=== PATIENT | male | born 1975 | race Caucasian/White ===

== ENCOUNTER 2018-04-02 00:31 | Outpatient (CLI) | payer BC, SELFPAY ==
--- NOTE | 2018-04-02 14:27 | DI.MRI_ITS ---
SYMPTOM/DIAGNOSIS: ACUTE ON CHRONIC LOW BACK P AIN M54.5, G89.29 - OTHER CHRONIC PAIN MRI LUMBAR SPINE: Comparison is made with 09 Oct 2015. T1, T2 and STIR sagittal, and T1, T2 Axial sequences were performed. The T-11, 12 through L1-2 discs appear intact. At L2-3 there is no partial disc desiccation and mild posterior disc bulging. There is no significant central canal stenosis or neuroforaminal narrowing At L3-4, there is mild disc bulging. At L4-5, there is mild disc bulging centrally. There is no significant neural foraminal narrowing of central canal stenosis. The findings appear stable. At L5-S1, there is a stable small central disc protrusion. There is no neuroforaminal narrowing or central canal stenosis. The conus medullaris appears intact. The marrow signal is normal. IMPRESSION: Degenerative disc changes with new degenerative bulging at L2-3.
--- NOTE | 2018-04-02 16:47 | DI.VRAD_ITS ---
EXAM: MR Lumbar Spine Without Intravenous Contrast. EXAM DATE/TIME: 04/02/2018 2:26 PM CLINICAL HISTORY: 42 years old, male; Pain; Low back pain; Patient HX: Acute or chronic low back pain. TECHNIQUE: Multiplanar magnetic resonance images of the lumbar spine without intravenous contrast. COMPARISON: MRI - LUMBAR SPINE WO CONTRAST 10/09/2015 3:07 PM FINDINGS: Vertebrae: Unremarkable. Spinal cord: Normal signal. No cord compression. DISCS/SPINAL CANAL/NEURAL FORAMINA: T12-L1: No stenosis. L1-L2: No stenosis L2-L3: Degenerative disc and spondylitic changes. Broad-based 2 mm right paracentral disc extrusion. No central canal stenosis. No foraminal stenosis. L3-L4: Degenerative disc and spondylitic changes.Disc bulging and central annular tear without focal herniation. No central canal or foraminal stenosis. L4-L5: Degenerative disc and spondylitic changes. Annular tear and broad-based 2 mm central disc protrusion. No central canal stenosis. No foraminal stenosis. L5-S1: Degenerative disc and spondylitic changes. 3 mm central disc protrusion. No central canal stenosis. No significant foraminal narrowing. Soft tissues: Unremarkable. IMPRESSION: Degenerative changes as described. Dictated and Authenticated by: Genaro Chen MD. Ordering:JORGE L LEOS MD
== END 2018-04-02 00:51 ==
PROVIDERS: PCP Family Medicine; Visit Provider Nurse Practitioner Family
DX: M51.37 Other intervertebral disc degeneration, lumbosacral region (principal); M54.5 Low back pain; G89.29 Other chronic pain
CPT/HCPCS: 72148

== ENCOUNTER 2018-09-15 14:28 | Outpatient (CLI) | payer BC, SELFPAY ==
[2018-09-15 14:47] LABS: Abs Immature Grans 0.01 k/cumm (0.0-0.09); Absolute Basophil Count 0.01 k/cumm (0.0-0.2); Absolute Eosinophil Count 0.06 k/cumm (0.0-0.7); Absolute Lymphocyte Count 1.72 k/cumm (1.2-3.4); Absolute Monocyte Count 0.73 k/cumm (0.11-0.7); Absolute Neutrophil Count 2.84 k/cumm (1.2-6.7); Basophils % 0.2; Eosinophils % 1.1; HCT 42.6 % (40.0-50.0); Immature Grans % 0.2; Mean Corp. HGB Concentration 32.9 g/dL (32.0-36.0); Mean Corpuscular Hemoglobin 29.7 pg (27.0-33.0); Mean Corpuscular Volume 90.4 fL (80-95); Mean Platelet Volume 9.3 fL (8.0-11.0); Monocytes % 13.6; Neutrophils % 52.9; Platelet Count 231 x1000/uL (130-400); RBC 4.71 m/cumm (4.50-6.00); RBC Distribution Width 13.2 % (11.8-14.1); White Blood Cell Count 5.37 k/cumm (4.4-10.8)
[2018-09-15 15:48] LABS: ALT 33 U/L (12-78); AST 21 U/L (15-37); Albumin 3.9 g/dL (3.4-5.0); Alkaline Phosphatase 56 U/L (46-116); Anion Gap 4.9 mmol/L (3-11); BUN 17 mg/dL (7-18); Bilirubin, Total 0.8 mg/dL (0.2-1.0); CO2 32.1 mmol/L (21.0-32.0); Calcium 9.1 mg/dL (8.5-10.1); Chloride 102 mmol/L (98-107); Cholesterol 272 mg/dL (50-200); Glucose 100 mg/dL (70-100); HDL Cholesterol 47 mg/dL (40-60); LDL CHOLESTEROL 169 mg/dL (<100); Potassium 4.5 mmol/L (3.5-5.1); Sodium 139 mmol/L (136-145); TSH (W/Ref FT4) 0.97 uIU/mL (0.358-3.74); Total Protein 7.1 g/dL (6.4-8.2); Triglyceride 347 mg/dL (30-150)
== END 2018-09-15 14:48 ==
PROVIDERS: PCP Family Medicine; Visit Provider Family Medicine
DX: R53.81 Other malaise (principal)
CPT/HCPCS: 36415; 80053; 80061; 83721; 84443; 85025

== ENCOUNTER 2018-11-04 07:00 | Outpatient (CLI) | payer BC, SELFPAY ==
--- NOTE | 2018-11-04 07:30 | MERGE_ITS ---
*[facility]* *[facility]* [address] [place] [address] Date of study: 11/04/2018 Transthoracic Echocardiography M-mode, complete 2D, complete spectral Doppler, and color Doppler *STUDY CONCLUSIONS* Impressions: Normal LV. Summary: 1. Left ventricle: The cavity size was normal. Wall thickness was at the upper limits of normal. Systolic function was normal. The estimated ejection fraction was 60-65%. Wall motion was normal; there were no regional wall motion abnormalities. 2. Mitral valve: There was mild regurgitation. 3. Right ventricle: The cavity size was normal. Wall thickness was normal. Systolic function was normal. 4. Pulmonary arteries: Pulmonary systolic pressure was at the upper limits of normal. PA peak pressure: 32mm Hg (S). *PATIENT PRESENTATION* Height: 182.9cm (72in ) S/D Pressure: 102 / 61 Weight: 83.9kg (184.6lb ) BSA: 2.07m^2 Test start time: 07:35 AM. Test stop time: 08:40 AM. REFERRING Denise Sellers PERFORMING Unknown PERFORMING [facility] PER ASSESSMENT NURSE [address] (R)(CT), RDPATRICK CONSULTING Balbir Mcnally ORDERING Balbir Mcnally REFERRING Balbir Mcnally *PROCEDURE DATA* Procedure information: This study was interpreted by [facility]. Pertinent images and digital data are archived for permanent storage and are available for subsequent review. No prior study was available for comparison. Study status: Routine. Transthoracic echocardiography. M-mode, complete 2D, complete spectral Doppler, and color Doppler. A Transthoracic Echocardiogram was performed. Scanning was performed from the parasternal, apical, subcostal, and suprasternal notch acoustic windows. Images were obtained using an [id number] cardiac ultrasound machine. Study completion: The patient tolerated the procedure well. *CARDIAC ANATOMY* Left ventricle: The cavity size was normal. Wall thickness was at the upper limits of normal. Systolic function was normal. The estimated ejection fraction was 60-65%. Wall motion was normal; there were no regional wall motion abnormalities. Aortic valve: Trileaflet; normal thickness leaflets. Mobility was not restricted. Doppler: Transvalvular velocity was within the normal range. There was no stenosis. There was no significant regurgitation. VTI ratio of LVOT to aortic valve: 0.87. Valve area (VTI): 2.6cm^2. Indexed valve area (VTI): 1.3cm^2/m^2. Peak velocity ratio of LVOT to aortic valve: 0.91. Valve area (Vmax): 2.7cm^2. Indexed valve area (Vmax): 1.3cm^2/m^2. Mean velocity ratio of LVOT to aortic valve: 0.85. Valve area (Vmean): 2.5cm^2. Indexed valve area (Vmean): 1.2cm^2/m^2. Mean gradient (S): 5mm Hg. Peak gradient (S): 8.4mm Hg. Aorta: Aortic root: The aortic root was normal in size. Ascending aorta: The ascending aorta was normal in size. Mitral valve: Mildly thickened leaflets. Mobility was not restricted. Doppler: Transvalvular velocity was within the normal range. There was no evidence for stenosis. There was mild regurgitation. Valve area by pressure half-time: 3.9cm^2. Indexed valve area by pressure half-time: 1.9cm^2/m^2. Peak gradient (D): 4mm Hg. Left atrium: The atrium was normal in size. Right ventricle: The cavity size was normal. Wall thickness was normal. Systolic function was normal. Pulmonic valve: Poorly visualized. Doppler: Transvalvular velocity was within the normal range. There was no evidence for stenosis. There was mild regurgitation. Peak gradient (S): 0.9mm Hg. Tricuspid valve: Structurally normal valve. Doppler: Transvalvular velocity was within the normal range. There was no evidence for stenosis. There was mild regurgitation. Pulmonary artery: Poorly visualized. Pulmonary systolic pressure was at the upper limits of normal. Right atrium: The atrium was normal in size. Pericardium: There was no pericardial effusion. Systemic veins: Inferior vena cava: Well visualized. The vessel was patent and normal in size. The respirophasic diameter changes were in the normal range (greater than or equal to 50%), consistent with normal central venous pressure. Baseline ECG: Bradycardia. Measurements Left ventricle Value Reference LV ID, ED, PLAX 4.9 cm 3.5 - 6.0 LV ID, ES, PLAX 3.5 cm 2.1 - 4.0 LV PW thickness, ED, PLAX 1.1 cm LV end-diastolic volume, 1-p A2C 101 ml LV ejection fraction, 1-p A2C 65 % LV end-diastolic volume, 1-p A4C 90 ml LV ejection fraction, 1-p A4C 62 % LV e', lateral 0.149 m/sec LV E/e', lateral 7 LV e', medial 0.136 m/sec LV E/e', medial 7 LV e', average 0.142 m/sec LV E/e', average 7 Ventricular septum Value Reference IVS thickness, ED, PLAX 1.1 cm LVOT Value Reference LVOT ID, A-P 2.0 cm LVOT area 3 cm^2 LVOT peak velocity, S 1.32 m/sec LVOT mean velocity, S 0.91 m/sec LVOT VTI, S 28.6 cm LVOT peak gradient, S 7 mm Hg LVOT mean gradient, S 3.7 mm Hg Stroke volume (SV), LVOT DP 86 ml Stroke index (SV/bsa), LVOT DP 41 ml/m^2 Aortic valve Value Reference Aortic valve peak velocity, S 1.5 m/sec Aortic valve mean velocity, S 1.1 m/sec Aortic valve VTI, S 33.0 cm Aortic mean gradient, S 5 mm Hg Aortic peak gradient, S 8.4 mm Hg VTI ratio, LVOT/AV 0.87 Aortic valve area, VTI 2.6 cm^2 Velocity ratio, peak, LVOT/AV 0.91 Aortic valve area, peak velocity 2.7 cm^2 Velocity ratio, mean, LVOT/AV 0.85 Aortic valve area, mean velocity 2.5 cm^2 Aortic valve area/bsa, mean velocity 1.2 cm^2/m^2 Aorta Value Reference Aortic root ID, ED 3.0 cm Ascending aorta ID, A-P, S 2.9 cm RVOT Value Reference RVOT VTI, S 23.8 cm Left atrium Value Reference LA ID, A-P, ES 3.1 cm LA ID/bsa, A-P 1.5 cm/m^2 <=2.2 LA volume/bsa, ES, 1-p A4C 20 ml/m^2 LA volume, ES, 2-p 36 ml LA volume/bsa, ES, 2-p 18 ml/m^2 LA/aortic root ratio 1.06 Mitral valve Value Reference Mitral E-wave peak velocity 1 m/sec Mitral A-wave peak velocity 0.49 m/sec Mitral deceleration time 192 ms 150 - 230 Mitral pressure half-time 56 ms Mitral peak gradient, D 4 mm Hg Mitral E/A ratio, peak 2.03 Mitral valve area, PHT, DP 3.9 cm^2 Pulmonary veins Value Reference Pulmonary vein peak velocity, S 0.54 m/sec Pulmonary vein peak velocity, D 0.73 m/sec Pulmonary vein velocity ratio, peak, 0.74 S/D Pulmonary vein A-wave reversal peak 0.34 m/sec velocity Pulmonary arteries Value Reference PA pressure, S, DP (H) 32 mm Hg <=30 Tricuspid valve Value Reference Tricuspid regurg peak velocity 2.4 m/sec Tricuspid peak RV-RA gradient 23.2 mm Hg Right atrium Value Reference RA area, ES, A4C 14.4 cm^2 8.3 - 19.5 Systemic veins Value Reference Estimated CVP 10 mm Hg Right ventricle Value Reference RV pressure, S, DP (H) 33 mm Hg <=30 Pulmonic valve Value Reference Pulmonic peak gradient, S 0.9 mm Hg Pulmonic regurg velocity, ED 0.48 m/sec Legend: (L) and (H) jovani values outside specified reference range. I have personally reviewed the images and have reviewed and edited the reported findings. Electronically signed by Denise Sellers 11/04/2018 18:03
--- NOTE | 2018-11-04 10:30 | ETT_ITS ---
*[facility]* *[facility]* [address] [place] [address] Stress Electrocardiography Dony protocol Date of study: 11/04/2018 *PATIENT PRESENTATION* Height: 182.9cm (72in) Blood Pressure: Weight: 84.1kg (185lb) BSA: 2.07m^2 Referring physician: Balbir Mcnally Ordering physician: Balbir Mcnally Impressions: Abnormal study , ST depressions without angina. Summary: 1. Stress ECG conclusions: The stress ECG is positive. Stress ECG change: downsloping depression. Severity: 2.0-3.0mm. In lead groups: II, III, aVF and V6. 2. Stress: The target heart rate was achieved. There is a normal resting blood pressure with an appropriate response to stress. The patient experienced no chest pain during stress. Exercise capacity is average for age. Recommendations: Consider Stress Echo. Indication: I49.3. History: Risk factors: FATHER AT AGE 66 YEARS FROM AN OR. FORMER SMOKER A PACK AND A HALF A WEEK. QUIT 9 YEARS AGO. Family history of coronary artery disease. Dyslipidemia. Cholesterol: 272mg/dl. HDL: 47mg/dl. LDL: 169mg/dl. Triglycerides: 347mg/dl. ALLERGIES: PENICILLIN. VICODIN. SULFA. MEDICATIONS: ATORVASTATIN 20 MG DAILY. METOPROLOL TARTRATE 25 MG DAILY. OMEPRAZOLE 40 MG DAILY. Protocol: Dony protocol. Baseline ECG: SINUS BRADYCARDIA. HR 54 BPM. Stress protocol: + +---+ + !Stage !HR !BP (mmHg) ! + +---+ + !Baseline supine !54 !110/70 (83) ! + +---+ + !Baseline standing !67 !110/78 (89) ! + +---+ + !Stage I; 1.7mph, 10degrees; 3 min !92 !130/80 (97) ! + +---+ + !Stage II; 2.5mph, 12degrees; 3 min !108!142/80 (101)! + +---+ + !Stage III; 3.4mph, 14degrees; 3 min!125!148/86 (107)! + +---+ + !Stage IV; 4.2mph, 16degrees; 3 min !162!170/90 (117)! + +---+ + !Peak stress !164! ! + +---+ + !Immediate post stress !---!180/60 (100)! + +---+ + !Recovery; 1 min !148!180/58 (99) ! + +---+ + !Recovery; 3 min !98 !180/60 (100)! + +---+ + !Recovery; 6 min !94 !160/60 (93) ! + +---+ + !Recovery; 9 min !98 !150/68 (95) ! + +---+ + * Stress results: Maximal heart rate during stress was 164bpm (92% of maximal predicted heart rate). The maximal predicted heart rate was 178bpm. The target heart rate was achieved. There is a normal resting blood pressure with an appropriate response to stress. The rate-pressure product for the peak heart rate and blood pressure was 63187ni Hg/min. The patient experienced no chest pain during stress. Exercise capacity is average for age. Stress ECG: TREADMILL PORTION OF STRESS TEST ENDED IN 12 MINUTES AND 1 SECOND DUE TO FATIGUE. NORMAL HEART RATE AND BLOOD PRESSURE RESPONSE TO EXERCISE. BP & HR SLOW TO RETURN TO BASELINE DURING RECOVERY. MAX HR = 164 % OF TARGET = 92 NO ECTOPY. APPROXIMATE METS ACHIEVED = 13.48 NO ANGINA NO SIGNIFICANT ST SEGMENT CHANGES AVERAGE FUNCTIONAL CAPACITY FOR EXERCISE. The stress ECG is positive. Maximal ST change occurred during the exercise phase. Stress ECG change: downsloping depression. Severity: 2.0-3.0mm. In lead groups: II, III, aVF and V6. Study data: Denise Sellers MD supervised and was readily available during the procedure. This study was interpreted by [facility]. Study status: Routine. Consent: The risks, benefits, and alternatives to the procedure were explained to the patient and informed consent was obtained. Procedure: Initial setup. A baseline ECG was recorded. Surface ECG leads and manual cuff blood pressure measurements were monitored. Heart sounds: Normal. Lung sounds: Normal. Treadmill exercise testing was performed using the Dony protocol. Study completion: The patient tolerated the procedure well and was discharged from the lab. Discharge: The patient left the laboratory in stable condition. Birthdate: Patient birthdate: 1975. Sex: Gender: male. Study date: Study date: 11/04/2018. Study time: 00:01 AM. Signature Documentation: The Stress ECG portion of this study was interpreted by Denise Sellers MD. Electronically signed by Denise Sellers 11/04/2018 16:59
== END 2018-11-04 07:20 ==
PROVIDERS: PCP Family Medicine; Visit Provider Family Medicine
DX: E78.5 Hyperlipidemia, unspecified (principal); I49.3 Ventricular premature depolarization; Z82.49 Family history of ischemic heart disease and other diseases of the circulatory system; R94.30 Abnormal result of cardiovascular function study, unspecified; Z87.891 Personal history of nicotine dependence; I34.0 Nonrheumatic mitral (valve) insufficiency
CPT/HCPCS: 93017; 93306

== ENCOUNTER 2019-01-26 08:29 | Outpatient (CLI) | payer BC, SELFPAY ==
[2019-01-26 09:47] LABS: ALT 47 U/L (16-63); Calculated LDL 106 mg/dL; Cholesterol 206 mg/dL (50-200); HDL Cholesterol 43 mg/dL (40-60); Triglyceride 286 mg/dL (30-150)
== END 2019-01-26 08:49 ==
PROVIDERS: PCP Family Medicine; Visit Provider Family Medicine
DX: E78.5 Hyperlipidemia, unspecified (principal)
CPT/HCPCS: 36415; 80061; 84460

== ENCOUNTER 2019-11-10 08:09 | Outpatient (CLI) | payer BC, SELFPAY ==
--- NOTE | 2019-11-10 12:51 | DI.RAD_ITS ---
EXAM: XR SACROILIAC JOINTS CLINICAL HISTORY: right SI joint pain M53.3 SACROCOCCYGEAL DISORDER, G89.29 CHRONIC PAIN. TECHNIQUE: 2D digital imaging was performed. COMPARISON: No exams were available for comparison FINDINGS: BONES: No acute fracture is present. No bony destructive lesion is seen. JOINTS: No dislocation present. No erosions or ankylosis of the sacroiliac joints. SOFT TISSUE: Normal. IMPRESSION: Unremarkable radiographs of the sacroiliac joints. DATA REPOSITORY: RADIATION DOSE DELIVERED:
== END 2019-11-10 08:29 ==
PROVIDERS: PCP Family Medicine; Visit Provider Family Medicine
DX: M53.3 Sacrococcygeal disorders, not elsewhere classified (principal); G89.29 Other chronic pain
CPT/HCPCS: 72202

== ENCOUNTER 2022-05-30 10:14 | Outpatient (CLI) | payer OTHER, SELFPAY ==
--- NOTE | 2022-05-30 10:24 | DI.RAD_ITS ---
Exam(s) XR LUMBAR SPINE COMPLETE EXAM: XR LUMBAR SPINE COMPLETE CLINICAL HISTORY: chronic low back pain M54.42 LUMBAGO W/SCIATICA G89.29 CHRONIC PAIN M53.3. TECHNIQUE: 2D digital imaging was performed of the lumbar spine. Five images were obtained. AP, la teral, right oblique, left oblique and L5-S1 spot views were obtained. COMPARISON: MR MR lumbar spine wo from 04/02/2018 FINDINGS: BONES: No fracture or destructive lesion. Vertebral bodies are unremarkable. No facet hypertrophy roque ntified. DISKS: There is disc space narrowing and a vacuum disc at L5-S1. ALIGNMENT: Lumbar spinal alignment is within normal limits. No spondylolysis or spondylolisthesis. SOFT TISSUE: Normal. IMPRESSION: Degenerative disease in the lumbar spine. DATA REPOSITORY: RADIATION DOSE DELIVERED:
== END 2022-05-30 10:34 ==
LOC: DI 10:49
PROVIDERS: PCP Family Medicine; Visit Provider Family Medicine
DX: M51.36 Other intervertebral disc degeneration, lumbar region (principal); G89.29 Other chronic pain; M54.42 Lumbago with sciatica, left side; M53.3 Sacrococcygeal disorders, not elsewhere classified
CPT/HCPCS: 72110

== ENCOUNTER 2022-05-30 11:01 | Outpatient (CLI) | payer OTHER, SELFPAY ==
[2022-05-30 10:45] LABS: Absolute Basophil Count 0.02 10^3/uL (0.0-0.2); Absolute Eosinophil Count 0.05 10^3/uL (0.0-0.7); Absolute Lymphocyte Count 1.85 10^3/uL (1.2-3.4); Absolute Monocyte Count 0.41 10^3/uL (0.1-0.8); Absolute Neutrophil Count 1.78 10^3/uL (1.2-6.7); Basophils % 0.5; Eosinophils % 1.2; HCT 42.1 % (40.0-50.0); MCH 29.9 pg (27.0-33.0); MCHC 33.3 % (32.0-36.0); MCV 90 fL (80-95); MPV 9.6 fL (8.0-11.0); Neutrophils % 43.3; Platelet Count 238 10^3/uL (130-400); RBC 4.69 10^6/uL (4.36-5.78); RDW 12.4 % (11.8-14.1); RDW-SD 40.8 fL; WBC 4.11 10^3/uL (4.4-10.8)
[2022-05-30 10:49] LABS: ESR 3 mm/hr (0-15)
[2022-05-30 11:04] LABS: C-Reactive Protein 0.18 mg/dL (0.0-0.3)
[2022-05-30 11:24] LABS: Calculated LDL 201 mg/dL (<100); Cholesterol 270 mg/dL (<200); HDL Cholesterol 50 mg/dL (40-60); Triglyceride 96 mg/dL (<150)
[2022-05-30 19:35] LABS: Rheumatoid Factor <8.6 IU/mL (<12.0)
== END 2022-05-30 11:02 | disposition home or self-care (01) ==
LOC: LBO 11:01
PROVIDERS: PCP Family Medicine; Visit Provider Family Medicine
DX: G89.29 Other chronic pain (principal); M54.50 Low back pain, unspecified
CPT/HCPCS: 36415; 80061; 85652; 85025; 86140; 86431

== ENCOUNTER 2022-06-20 01:03 | Outpatient (CLI) | payer OTHER, SELFPAY ==
--- NOTE | 2022-06-20 07:00 | DI.MRI_ITS ---
Exam(s) MR LUMBAR SPINE WO EXAM: MR LUMBAR SPINE WO CLINICAL HISTORY: chronic back pain x 7 years,LUMBAGO,M54.42. TECHNIQUE: Multiplanar multisequence MRI of the Lumbar spine was performed. COMPARISON: MR MR lumbar spine wo from 04/02/2018 CR XR LUMBAR SPINE COMPLETE from 05/30/2022 FINDINGS: Bones: The last intervertebral disc space is designated the L5/S1 level for the numbering purpose of this examination. The vertebral body heights are well maintained. Alignment is satisfactory. Mild d egenerative endplate signal changes are present. Cord: The conus tip ends at the T12/L1 level. It is of normal size and signal intensity. T12-L1: No disc herniations or bulges are present. No central spinal canal or neural foraminal stenos is. L1-2: No disc herniations or bulges are present. No central spinal canal or neural foraminal stenosis . L2-3: There is a mild diffuse disc bulge. No central spinal canal or neural foraminal stenosis. L3-4: No disc herniations or bulges are present. No central spinal canal or neural foraminal stenosis . L4-5: There is a mild diffuse disc bulge. No central spinal canal or neural foraminal stenosis. L5-S1: There is again seen a small central disc herniation. There may be mild in impression upon the right S1 nerve root. It is grossly unchanged. No central spinal canal or neural foraminal stenosis . Soft tissues: The visualized SI joints and sacrum are well maintained. The paraspinal soft tissues ar e unremarkable. IMPRESSION: 1. There is again seen a small central disc herniation at L5-S1. There may be mild impression upon t he right S1 nerve root. No central spinal canal or neural foraminal stenosis is seen. 2. Mild disc bulges at L2-3 and L4-L5 but no significant central spinal canal or neural foraminal ross nosis is seen in the lumbar spine. DATA REPOSITORY:
== END 2022-06-20 01:23 ==
PROVIDERS: PCP Family Medicine; Visit Provider Family Medicine
DX: G89.29 Other chronic pain (principal); M54.42 Lumbago with sciatica, left side; M51.26 Other intervertebral disc displacement, lumbar region
CPT/HCPCS: 72148

== ENCOUNTER 2022-10-08 04:41 | Outpatient (CLI) | payer OTHER, SELFPAY ==
[2022-10-08 08:59] LABS: Abs Immature Grans 0.01 10^3/uL (0.0-0.06); Absolute Basophil Count 0.03 10^3/uL (0.0-0.2); Absolute Eosinophil Count 0.06 10^3/uL (0.0-0.7); Absolute Lymphocyte Count 1.61 10^3/uL (1.2-3.4); Absolute Monocyte Count 0.56 10^3/uL (0.1-0.8); Absolute Neutrophil Count 2.86 10^3/uL (1.2-6.7); Basophils % 0.6; Eosinophils % 1.2; HCT 42.2 % (40.0-50.0); Immature Grans % 0.2; Lymphocytes % 31.4; MCHC 33.2 % (32.0-36.0); MCV 91 fL (80-95); MPV 9.9 fL (8.0-11.0); Monocytes % 10.9; Neutrophils % 55.7; Platelet Count 237 10^3/uL (130-400); RBC 4.66 10^6/uL (4.36-5.78); RDW 12.7 % (11.8-14.1); RDW-SD 41.9 fL; WBC 5.13 10^3/uL (4.4-10.8)
[2022-10-08 09:38] LABS: ALT 35 U/L (16-63); AST 21 U/L (15-37); Albumin 4.1 g/dL (3.4-5.0); Alkaline Phosphatase 52 U/L (46-116); Anion Gap 5.8 mmol/L (3-11); BUN 22 mg/dL (7-18); CO2 30.2 mmol/L (21.0-32.0); CREATININE 1.2 mg/dL (0.70-1.30); Calcium 8.6 mg/dL (8.5-10.1); Chloride 107 mmol/L (98-107); Estimated GFR 75.53 (mL/min/1.73m2); Glucose 110 mg/dL (74-106); Potassium 4.5 mmol/L (3.5-5.1); Sodium 143 mmol/L (136-145); Total Protein 7.3 g/dL (6.4-8.2)
== END 2022-10-08 04:42 | disposition home or self-care (01) ==
LOC: LBO 04:41
PROVIDERS: PCP Family Medicine; Visit Provider Family Medicine
DX: E78.5 Hyperlipidemia, unspecified (principal); M54.42 Lumbago with sciatica, left side; G89.29 Other chronic pain; Z01.818 Encounter for other preprocedural examination; Z01.812 Encounter for preprocedural laboratory examination
CPT/HCPCS: 36415; 80053; 85025